=== PATIENT | female | born 1995 | race Caucasian/White ===

== ENCOUNTER 2019-11-11 08:33 | Day surgery (SDC) | payer BC ==
[2019-11-07 13:59] VITALS: BMI 23.9
[~2019-11-11 08:33] MED LIST: LACTATED RINGERS 1,000 ML IV SCH; LIDOCAINE 1% (10MG/ML) FOR IV START INTRADERMA PRN
[2019-11-11 08:58] VITALS: TEMP 98.8
[2019-11-11] MEDS ORDERED: PROPOFOL 10 MG/ML 20 ML VIAL IV ONE (09:27)
[2019-11-11] MEDS ORDERED: LIDOCAINE 1% INJ 10MG/ML (20 ML MDV) ONE (09:27)
--- NOTE | 2019-11-11 09:56 | P.PCN ---
Date of Procedure: 11/11/19 Description of Procedure: BRIEF HISTORY: Patient is a 24-year-old female with a medical history significant for anxiety who presents for outpatient EGD for evaluation of epigastric abdominal pain. Patient reports chronic epigastric discomfort, burning, and bloating. No prior EGD. PROCEDURE PERFORMED: Esophagogastroduodenoscopy with biopsy. PREOPERATIVE DIAGNOSIS: Epigastric abdominal pain, nausea. ESTIMATED BLOOD LOSS: Minimal. IV sedation per anesthesia. PROCEDURE: After informed consent was obtained, the patient was brought into the endoscopy unit. IV sedation was administered by Anesthesia under continuous monitoring. Initially the Olympus GIF-190 video endoscope was inserted into the mouth. Esophagus intubated without any difficulty. It was gradually advanced into the stomach and duodenum and carefully examined. The bulb and the second part of the duodenum appeared normal, with biopsies taken to rule out celiac sprue. The scope at this time was withdrawn to the stomach, adequately insufflated with air, and upon careful examination, mucosa of the antrum, body, cardia and the fundus appeared normal, except for some mild scattered erythema in the antrum and body suggestive of mild gastritis with biopsies taken. There was also a small amount of retained food in the body of the stomach. The scope was then withdrawn into the esophagus. The GE junction was located at 39 cm from the incisors and biopsy. The esophagus appeared normal. There were no erosions or ulcerations seen and the patient tolerated the procedure well. IMPRESSION: 1. Mild gastritis. 2. Small amount of retained food. 3. Biopsies of the duodenum, antrum and body and GE junction. RECOMMENDATIONS: The findings of this examination were discussed with the patient. Okay to resume diet. Continue current medical management. Follow-up in the GI clinic on 11/16/2019 as scheduled. Can consider gastric emptying study for further evaluation of retained food in stomach.
[2019-11-11 10:01] VITALS: BP 113/64; PULSE 85; RESP 16
== END 2019-11-11 10:22 | disposition home or self-care (01) ==
LOC: ORWHC2ENDO 08:33
PROVIDERS: ATTEND Internal Medicine
DX: K29.50 Unspecified chronic gastritis without bleeding (principal); Z90.710 Acquired absence of both cervix and uterus; Z98.890 Other specified postprocedural states; Z79.899 Other long term (current) drug therapy
CPT/HCPCS: 43239; 81025; 88305; J2001; J2704

== ENCOUNTER → 2023-12-12 | Outpatient (CLI) | payer OTHER ==
--- NOTE | 2023-12-12 12:38 | XR ---
EXAMINATION TYPE: XR foot complete RT DATE OF EXAM: 12/12/2023 COMPARISON: NONE CLINICAL INDICATION: Female, 28 years old with history of [id number] CONTUSION OF RT FOOT; TECHNIQUE: Three views are submitted. FINDINGS: The osseous structures are intact. There is no acute fracture or dislocation. Mild arthropathy fir st MTP with hallux valgus deformity. Small calcaneal spur. IMPRESSION: 1. No acute fracture or dislocation. If symptoms persist, follow-up exam in 7 to 10 days could be ob tained. [facility], , 12/12/2023 12:36 PM
== END | disposition home or self-care (01) ==
LOC: RADXRMAIN 12:08
PROVIDERS: ATTEND Emergency Medicine
DX: S90.31XA Contusion of right foot, initial encounter (principal); M12.871 Other specific arthropathies, not elsewhere classified, right ankle and foot; M20.11 Hallux valgus (acquired), right foot

== ENCOUNTER 2024-08-22 18:21 | Emergency (ER) | payer BC, OTHER ==
[2024-08-22 18:29] VITALS: RESP 16
--- NOTE | 2024-08-22 19:14 | ED ---
Skin/Abscess/FB HPI - General Chief complaint: Skin/Abscess/Foreign Body Stated complaint: workplace exposure- [facility] Time Seen by Provider: 08/22/24 18:58 Source: patient, RN notes reviewed Mode of arrival: ambulatory Limitations: no limitations - History of Present Illness Initial comments: This is a 29 year old female who presents to the emergency department for a puncture to the left hand. 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 States that it did have the protective covering on it but still managed to poke her. She is unsure if these were used or not. She is unable to see a puncture wound in her hand at this point, however she was sent in by her garage supervisor for required [facility] testing. Tetanus vaccine is up-to-date. - Related Data Home Medications Medication Instructions Recorded Confirmed FLUoxetine HCL [PROzac] 20 mg PO 1400 11/07/19 11/07/19 Tyler-Linyah 1 tab PO 1400 11/07/19 11/07/19 Allergies Allergy/AdvReac Type Severity Reaction Status Date / Time No Known Allergies Allergy Verified 11/11/19 08:50 Review of Systems ROS Statement: Those systems with pertinent positive or pertinent negative responses have been documented in the HPI. ROS Other: All systems not noted in ROS Statement are negative. Past Medical History Additional Past Medical History / Comment(s): "abdominal issues" History of Any Multi-Drug Resistant Organisms: None Reported Past Surgical History: No Surgical Hx Reported Additional Past Surgical History / Comment(s): tooth extractions Past Anesthesia/Blood Transfusion Reactions: No Reported Reaction Past Psychological History: Anxiety Smoking Status: Never smoker General Exam Limitations: no limitations General appearance: alert, in no apparent distress Head exam: Present: atraumatic, normocephalic, normal inspection Respiratory exam: Present: normal lung sounds bilaterally. Absent: respiratory distress, wheezes, rales, rhonchi, stridor Cardiovascular Exam: Present: regular rate, normal rhythm Neurological exam: Present: alert, oriented X3, CN II-XII intact Psychiatric exam: Present: normal affect, normal mood Skin exam: Present: other (No obvious puncture wounds to the left hand) Course Vital Signs 08/22/24 08/22/24 18:26 19:29 Temperature 98.2 F 98.1 F Pulse Rate 79 77 Respiratory 16 16 Rate Blood Pressure 133/82 129/86 O2 Sat by Pulse 98 98 Oximetry Medical Decision Making - Medical Decision Making This is a 29-year-old female who presents to the emergency department for a puncture wound to the left hand. Was pt. sent in by a medical professional or institution? @ -No Did you speak to anyone other than the patient for history? @ -No Did you review nursing and triage notes? @ -Yes, and I agree, it is accurate with regards to the patient's symptoms. Were old charts reviewed? @ -No Differential Diagnosis? @ -Puncture wound, cellulitis, abrasion, burn, this is not meant to be an all-inclusive list. EKG interpreted by me (3pts min.)? @ -Not obtained X-rays interpreted by me (1pt min.)? @ -Not obtained CT interpreted by me (1pt min.)? @ -Not obtained U/S interpreted by me (1pt. min.)? @ -Not obtained What testing was considered but not performed? (CT, X-rays, U/S, labs)? Why? @ -None What meds were considered but not given? Why? @ -None Did you discuss the management of the patient with other professionals? @ -No Did you reconcile home meds? @ -No Was smoking cessation discussed for >3mins.? @ -No Was critical care preformed (if so, how long)? @ -No Were there social determinants of health that impacted care today? How? (Homelessness, low income, unemployed, alcoholism, drug addiction, transportation, low edu. Level, literacy, decrease access to med. care, [facility], rehab)? @ -No Was there de-escalation of care discussed even if they declined? (Discuss DNR or withdrawal of care, Hospice)? @ -No What co-morbidities impacted this encounter? (DM, HTN, Smoking, COPD, CAD, Cancer, CVA, Hep., AIDS, mental health diagnosis, sleep apnea, morbid obesity)? @ -None Was patient admitted / discharged? @ -Discharged. The puncture wound on her hand was not even visible at this point. Tetanus vaccine is up-to-date. Required [facility] laboratory studies and paperwork were completed. Patient discharged home in stable condition. Case discussed with ED attending Dr. Hernandez. Return precautions reviewed in depth, the patient is instructed to return to the emergency department with any new, worsening, or concerning symptoms. Patient verbalized understanding. Undiagnosed new problem with uncertain prognosis? @ -None Drug Therapy requiring intensive monitoring for toxicity (Heparin, Nitro, Insulin, Cardizem)? @ -None Were any procedures done? @ -None Diagnosis/symptom? @ -Puncture wound to left hand, possible exposure to bodily fluids Acute, or Chronic, or Acute on Chronic? @ -Acute Uncomplicated (without systemic symptoms) or Complicated (systemic symptoms)? @ -Uncomplicated Side effects of treatment? @ -None Exacerbation, Progression, or Severe Exacerbation] @ -Not applicable Poses a threat to life or bodily function? @ -No Disposition Clinical Impression: Puncture wound of hand, Exposure to potentially hazardous substance Disposition: HOME SELF-CARE Instructions (If sedation given, give patient instructions): Puncture Wound (ED) Additional Instructions: Return to the emergency department with any new, worsening, or concerning symptoms. Follow up with your primary care provider. Is patient prescribed a controlled substance at d/c from ED?: No Referrals: [facility] [NON-STAFF] - 1-2 days (Contact a primary care office to become established with a provider. ) [facility] [NON-STAFF] - 1-2 days None,Stated [Primary Care Provider] - 1-2 days Forms: Area PCPs Time of Disposition: 19:14
[2024-08-22 19:30] VITALS: BP 129/86; PULSE 77; TEMP 98.1
[2024-08-23 03:22] LABS: Hepatitis B Surface AB- Quant 1000.0 mIU/mL
[2024-08-23 03:24] LABS: Hepatitis B Surface Antigen Nonreactive (Nonreactive)
[2024-08-23 04:28] LABS: HIV 2 AB Non-Reactive (Non-Reactive); HIV AB P24 Non-Reactive (Non-Reactive); HIV P24 AG Non-Reactive (Non-Reactive)
== END 2024-08-22 19:57 | disposition home or self-care (01) ==
LOC: EC 18:21
DX: S61.432A Puncture wound without foreign body of left hand, initial encounter (principal); Z77.098 Contact with and (suspected) exposure to other hazardous, chiefly nonmedicinal, chemicals; Y99.0 Civilian activity done for income or pay; Y92.89 Other specified places as the place of occurrence of the external cause
CPT/HCPCS: 36415; 86704; 86706; 87340; 87390; 99283